=== PATIENT | female | born 1990 | race Hispanic/Latino ===

== ENCOUNTER 2024-03-16 03:51 | Emergency (ER) | payer BC, OTHER ==
[~2024-03-16] VITALS: Ht 162.6 cm; Wt 74.4 kg
[~2024-03-16 03:51] MED LIST: PNV1TABL77 PO
[2024-03-16] MEDS: 0.9%NACL 1000ML 1,000 ML IV SCH (04:08)
[2024-03-16 04:14] LABS: BASOPHILS # (AUTO) 0.02 K/uL (0.00-0.20); BASOPHILS % (AUTO) 0.2 % (0.0-5.0); HEMATOCRIT 36.9 % (36-48); IMMATURE GRANULOCYTE ABSOLUTE 0.04 K/uL (0-1); LYMPHOCYTES # (AUTO) 0.6 K/uL (1.0-4.8); LYMPHOCYTES % (AUTO) 6.1 % (21.0-51.0); MEAN CORPUSCULAR HEMOGLOBIN 30.2 pg (27.0-33.0); MEAN CORPUSCULAR HGB CONC 35.8 g/dL (32.0-36.0); MEAN CORPUSCULAR VOLUME 84.4 fL (79-99); MONOCYTES # (AUTO) 0.3 K/uL (0.1-1.0); MONOCYTES % (AUTO) 2.5 % (3.0-13.0); NEUTROPHILS % (AUTO) 90.8 % (40.0-77.0); PLATELET COUNT (AUTO) 254 K/uL (130-400); RED BLOOD CELL COUNT(AUTO) 4.37 MIL/uL (4.00-5.50); RED CELL DISTRIBUTION WIDTH 15.1 % (11.0-15.5); WHITE BLOOD COUNT (AUTO) 9.9 K/uL (4.8-10.8)
[2024-03-16 04:18] LABS: RAPID GROUP A STREP negative (NEGATIVE)
[2024-03-16 04:22] LABS: CREATININE 0.6 mg/dL (0.5-1.0); POTASSIUM 3.5 mmol/L (3.5-5.1)
[2024-03-16 04:25] LABS: SARS-CoV-2, RNA, NAAT NEGATIVE SARS CoV-2 (NEGATIVE)
[2024-03-16 04:27] LABS: ALBUMIN 3.1 g/dL (3.5-5.0); BILIRUBIN,TOTAL 0.4 mg/dL (0.2-1.0); TOTAL PROTEIN, SERUM 7.3 g/dL (6.0-8.3)
[2024-03-16 04:28] LABS: INFLUENZA TYPE A Negative For Type A (NEGATIVE); INFLUENZA TYPE B Negative For Type B (NEGATIVE)
[2024-03-16] MEDS ORDERED: ONDA-104 PO (04:40)
[2024-03-16] MEDS: ONDANSETRON 4MG INJ IVP ONE (04:40)
[2024-03-16 04:48] VITALS: BP 118/70; PULSE 84; RESP 20; O2SAT 98
[2024-03-16 05:04] LABS: WBC MORPHOLOGY CONSISTENT W/DIFF
== END 2024-03-16 05:10 | disposition home or self-care (01) ==
LOC: EDH 03:51
DX: O99.611 Diseases of the digestive system complicating pregnancy, first trimester (principal); A08.4 Viral intestinal infection, unspecified; Z20.822 Contact with and (suspected) exposure to COVID-19; Z3A.01 Less than 8 weeks gestation of pregnancy; Z98.890 Other specified postprocedural states
CPT/HCPCS: 99284; 96374; 76805; 87635; 80053; 85025; 87880; 87804 ×2; 36415; J7030; J2405